=== PATIENT | female | born 1990 | race Caucasian/White ===

== ENCOUNTER 2018-03-08 23:18 | Emergency (ER) | payer SELFPAY ==
--- NOTE | 2018-03-08 23:56 | ED Physician Documentation ---
General Adult - HISTORIAN Historian: patient - HPI Stated Complaint: Painful urination Chief Complaint: General Adult Further Comments: yes (27 year old female presents with complaints of foul smelling urine, concerned she is . States she has taken 3 tests at home which have all been negative. LMP February 10, 2018 Patient concerned that she is - c/o fatigue and sore breast.) - ROS CONST: no problems EYES/ENT: none CVS/RESP: none GI/: none, nausea. denies: abdominal pain, problems urinating, vomiting, diarrhea, black stools, other MS/SKIN/LYMPH: denies: none, calf pain, neck pain, joint pain, leg swelling, rash, swollen glands, leg pain, back pain, ankle swelling, other NEURO/PSYCH: denies: headache, fainting, dizziness, tingling, numbness, difficulty walking, difficulty with speech, anxiety, depression, other - PAST HX Past History: denies: none Other History: other (cystic acne) Allergies/Adverse Reactions: Allergies Allergy/AdvReac Type Severity Reaction Status Date / Time No Known Allergies Allergy Unverified 03/08/18 23:47 Home Medications: Ambulatory Orders Medication Instructions Recorded NK [NK] 03/08/18 - SOCIAL HX Smoking History: non-smoker - FAMILY HX Family History: No - VITAL SIGNS Vital Signs: Vital Signs Temp Pulse Resp BP Pulse Ox 98.6 F 03/08/18 23:20 - REVIEWED ASSESSMENTS Nursing Assessment Reviewed: Yes Vitals Reviewed: Yes Progress - Progress Progress: Reviewed negative test and negative UA with patient. Instructed patient to repeat test 1 week after missed period. Patient has not missed period at this time. Patient refused vaginal exam. Patient now reports symptoms started after having vaginal intercourse immediately after anal intercourse. Reports small amount of discharge. States she is in a monogamous relationship. Does not need STD testing. Patient reports douching twice a week. Will treat for Bacterial vaginosis. ED Results Lab/Radiology - Orders Orders: ED Orders Category Date Time Status UA W/MICRO IF INDICATED Stat Lab 03/08/18 23:39 Ordered URINE HCG Stat Lab 03/08/18 Uncollected General Adult Physical Exam - PHYSICAL EXAM GENERAL APPEARANCE: [id number] N RESPIRATORY: no resp distress, chest non-tender, breath sounds normal CVS: reg rate & rhythm, heart sounds normal, equal pulses, no murmur, no gallop , PMI nml, no JVD, no friction rub, 24 ABDOMEN: soft, no organomegaly, normal bowel sounds, no abdominal bruit, no distension BACK: normal inspection, no CVA tenderness SKIN: normal color, warm/dry, NR, INT, PAL, DR EXTREMITIES: non-tender, normal range of motion, no evidence of injury, no edema , J, [employer]: oriented X3, CN's nml as tested, motor nml, sensation nml, mood/affect nml Discharge Clincal Impression: BV (bacterial vaginosis) Referrals: Primary Doctor,No [Primary Care Provider] - 2 Days Additional Instructions: Vaginal rest until symptoms resolve Do not have vaginal intercourse immediately following anal intercourse. No douching. supervisor fitting your antibiotics and start them tomorrow. Follow up with your primary care doctor if your symptoms become worse or do not improve. Condition: Stable Disposition: 01 HOME, SELF-CARE Decision to Admit: NO Decision Time: 23:57
[2018-03-09 08:40] LABS: APPEARANCE,URINE CLEAR (CLEAR); COLOR,URINE YELLOW (YELLOW); OCCULT BLOOD,URINE NEGATIVE (NEGATIVE); URINE HCG NEGATIVE (NEGATIVE); UROBILINOGEN URINE 0.2 Eu (0.2-1.0)
== END 2018-03-09 00:10 | disposition home or self-care (01) ==
LOC: ED 23:18 → EDBD 23:18 → ED 03-09 00:10
DX: N76.0 Acute vaginitis (principal)
CPT/HCPCS: 81002; 81025; 99283